=== PATIENT | female | born 1945 | race Caucasian/White ===

== ENCOUNTER 2018-06-02 23:11 | Inpatient (IN) | payer OTHER ==
[2018-06-02] MEDS ORDERED: LEVALBUTEROL 1.25 MG/3 ML NEB ONE (23:38)
[2018-06-02] MEDS ORDERED: METHYLPREDNISOLONE 125 MG INJ ONE (23:38)
[2018-06-03 00:13] LABS: Absolute Monocytes 0.9 K/uL (0.1-1.3); Absolute Neutrophil 8.2 K/uL (1.8-8.0); Basophils % 0.6 % (0-1.3); Eosinophils % 0.8 % (0-4.4); Hematocrit 42.7 % (36.0-45.0); Lymphocytes % 30.3 % (15.3-44.8); MCV 87.9 fL (80-100); MPV 7.5 fL (7.6-11.3); Monocytes % 6.7 % (3.3-12.3); RBC Red Blood Cell Count 4.86 M/uL (3.86-4.86)
[2018-06-03 00:33] LABS: Protime INR 0.88
[2018-06-03 00:40] LABS: BUN Blood Urea Nitrogen 11 mg/dL (7-18); Bicarbonate 28 mmol/L (21-32); Glucose Level 126 mg/dL (74-106); NT PRO-BNP 167 pg/mL (<125); Potassium 3.8 mmol/L (3.5-5.1); Sodium Level 142 mmol/L (136-145); Troponin (Emerg Dept Use Only) < 0.02 ng/mL (0.0-0.045)
--- NOTE | 2018-06-03 03:44 | EDPHYS ---
Physician Documentation [facility] Name: Leslie Coy Age: 72 yrs Sex: Female : 1945 Arrival Date: 06/02/2018 Time: 23:15 Bed 7 Private MD: ED Physician Alex Salcedo HPI: 06/03 01:09 This 72 yrs old Female presents to ER via EMS with complaints of sob, cough. rn 01:09 The patient has shortness of breath at rest. rn 01:10 Onset: The symptoms/episode began/occurred 3 day(s) ago. Duration: The symptoms are rn continuous. The patient's shortness of breath is aggravated by exertion, light activity, talking, walking. Associated signs and symptoms: Pertinent positives: productive cough, Pertinent negatives: fever, hemoptysis, loss of consciousness. Severity of symptoms: At their worst the symptoms were moderate in the emergency department the symptoms are unchanged. The patient has experienced similar episodes in the past. The patient has not recently seen a physician. Historical: - Allergies: 06/02 23:27 Codeine; ak1 23:27 Aspirin; ak1 - Home Meds: 23:27 Daliresp 500 mcg Oral tab 1 tab once daily [Active]; prednisone 10 mg Oral tab once ak1 daily [Active]; Zoloft Oral [Active]; - PMHx: 23:27 ADD/ADHD; BREAST CA; COPD; skin ca; ak1 - PSHx: 23:27 Mastectomy, Right; Hysterectomy; ak1 - Immunization history:: Adult Immunizations unknown. - Social history:: Smoking status: Patient uses tobacco products, smokes one-half pack cigarettes per day. - Ebola Screening: : No symptoms or risks identified at this time. - Family history:: not pertinent. - Hospitalizations: : No recent hospitalization is reported. ROS: 06/03 01:10 Constitutional: Negative for fever, chills, and weight loss, Eyes: Negative for injury, rn pain, redness, and discharge, Neck: Negative for injury, pain, and swelling, Cardiovascular: Negative for chest pain, palpitations, and edema, Respiratory: + sob and cough Abdomen/GI: Negative for abdominal pain, nausea, vomiting, diarrhea, and constipation, MS/Extremity: Negative for injury and deformity, Skin: Negative for injury, rash, and discoloration, Neuro: + generalized weakness Exam: 01:10 Constitutional: This is a well developed, well nourished patient who is awake, alert, rn mild respiratory distress Head/Face: Normocephalic, atraumatic. Cardiovascular: tachycardic, regular, no murmur Respiratory: + moderate tachypnea, no retractions, poor inspiratory air movement Abdomen/GI: soft, non-tender Skin: Warm, dry, no evidence of cellulitis. MS/ Extremity: Pulses equal, no cyanosis. Neurovascular intact. Full, normal range of motion. Equal circumference. Neuro: Awake and alert, GCS 15, oriented to person, place, time, and situation. Cranial nerves II-XII grossly intact. Motor strength 5/5 in all extremities. Sensory grossly intact. Vital Signs: 06/02 23:22 BP 145 / 82; Pulse 108; Resp 24; Temp 99.5(A); Pulse Ox 98% on Nebulizer Mask; Weight ak1 49.44 kg (R); Height 4 ft. 10 in. (147.32 cm) (R); Pain 10; 06/03 01:51 BP 125 / 74; Pulse 91; Resp 19; Pulse Ox 98% on 3 lpm NC; Pain 0/10; ak1 02:55 BP 114 / 62; Pulse 94; Resp 28; Temp 99; Pulse Ox 97% on 3 lpm NC; ak1 03:51 BP 126 / 69; Pulse 89; Resp 26; Temp 99; Pulse Ox 99% on 3 lpm NC; Pain 0/10; ak1 07:31 BP 129 / 80; Pulse 80; Resp 20; Temp 98.9; Pulse Ox 95% on 3 lpm NC; Pain 0/10; sg 06/02 23:22 Body Mass Index 22.78 (49.44 kg, 147.32 cm) ak1 MDM: 06/02 23:16 Patient medically screened. rn 06/03 01:13 ED course: + hx of dvt. rn 03:42 Differential diagnosis: Anemia Bronchitis Chronic Obstructive Pulmonary Disease rn Pneumothorax pulmonary edema, Pulmonary Embolism reactive airway disease, Sepsis. Data reviewed: vital signs, nurses notes, lab test result(s), EKG, radiologic studies, CT scan, plain films, and as a result, I will admit patient. Counseling: I had a detailed discussion with the patient and/or guardian regarding: the historical points, exam findings, and any diagnostic results supporting the discharge/admit diagnosis, lab results, radiology results, the need for further work-up and treatment in the hospital. Response to treatment: the patient's symptoms have mildly improved after treatment, and as a result, I will admit patient. 06/02 23:18 Order name: Blood Culture Adult (2) 06/02 23:18 Order name: BMP; Complete Time: 01:08 rn 06/02 23:18 Order name: CBC with Diff; Complete Time: 00:28 rn 06/02 23:18 Order name: D-Dimer; Complete Time: 00:40 rn 06/02 23:18 Order name: NT PRO-BNP; Complete Time: 01:08 06/02 23:18 Order name: PT-INR; Complete Time: 00:40 06/02 23:18 Order name: Ptt, Activated; Complete Time: 00:40 06/02 23:18 Order name: Troponin (emerg Dept Use Only); Complete Time: 01:08 06/02 23:18 Order name: Procalcitonin; Complete Time: 01:13 06/02 23:18 Order name: Flu; Complete Time: 01:08 06/03 04:09 Order name: ABG Arterial Blood Gas [facility] 06/03 05:19 Order name: Basic Metabolic Panel [facility] 06/03 05:19 Order name: Basic Metabolic Panel [facility] 06/03 05:19 Order name: CBC with Automated Diff [facility] 06/02 23:18 Order name: XRAY CXR (1 view) 06/02 23:18 Order name: EKG; Complete Time: 23:18 06/02 23:18 Order name: Cardiac monitoring; Complete Time: 23:48 rn 06/02 23:18 Order name: EKG - Nurse/Tech; Complete Time: 00:01 06/02 23:18 Order name: IV Saline Lock; Complete Time: 00:01 06/02 23:18 Order name: Labs collected and sent; Complete Time: 00:01 06/02 23:18 Order name: O2 Per Protocol; Complete Time: 23:30 rn 06/02 23:18 Order name: O2 Sat Monitoring; Complete Time: 23:30 rn 06/03 01:08 Order name: CT Chest For PE Angio rn 06/03 05:19 Order name: CONS Physician Consult [facility] 06/03 05:19 Order name: Heart Healthy [facility] 06/03 05:19 Order name: CBC with Automated Diff [facility] 06/03 05:19 Order name: Sputum Culture [facility] Administered Medications: 06/02 23:49 Drug: Xopenex (3) 1.25 mg Route: Inhalation; ak1 06/03 00:10 Drug: SOLU-Medrol 125 mg Route: IVP; Site: left forearm; ak1 01:50 Follow up: Response: No adverse reaction ak1 00:10 Drug: NS 0.9% 500 ml Route: IV; Rate: bolus; Site: left forearm; ak1 01:50 Follow up: IV Status: Completed infusion ak1 Disposition: 06/03/18 03:44 Hospitalization ordered by Viviana Harrington for Inpatient Admission. Preliminary diagnosis are Chronic obstructive pulmonary disease with (acute) exacerbation, Dyspnea, unspecified. - Bed requested for Telemetry/MedSurg (Inpatient). - Status is Inpatient Admission. sg - Condition is Stable. - Problem is new. - Symptoms have improved. UTI on Admission? No Signatures: Dispatcher [employer] [facility] Jayla Holcomb RN RN kl Gay, Steven, RN RN sg Nieto, Roman, MD MD rn Krenek, Amber, RN RN ak1 Corrections: (The following items were deleted from the chart) : 03:44 Hospitalization Ordered by Viviana Harrington MD for Inpatient Admission. Preliminary kl diagnosis is Chronic obstructive pulmonary disease with (acute) exacerbation; Dyspnea, unspecified. Bed requested for Telemetry/MedSurg (Inpatient). Status is Inpatient Admission. Condition is Stable. Problem is new. Symptoms have improved. UTI on Admission? No. rn 08:17 05:22 06/03/2018 03:44 Hospitalization Ordered by Viviana Harrington MD for Inpatient sg Admission. Preliminary diagnosis is Chronic obstructive pulmonary disease with (acute) exacerbation; Dyspnea, unspecified. Bed requested for Telemetry/MedSurg (Inpatient). Status is Inpatient Admission. Condition is Stable. Problem is new. Symptoms have improved. UTI on Admission? No. kl
--- NOTE | 2018-06-03 03:44 | ER ---
Nurse's Notes [facility] Name: Leslie Coy Age: 72 yrs Sex: Female : 1945 Arrival Date: 06/02/2018 Time: 23:15 Bed 7 Private MD: Diagnosis: Chronic obstructive pulmonary disease with (acute) exacerbation;Dyspnea, unspecified Presentation: 06/02 23:23 Presenting complaint: EMS states: pt with SOB, productive cough X3 days [employer]. pt stated ak1 chest pain and cough X1 week. pt PCP is [facility] in [place]. pt uses home oxygen. Transition of care: patient was not received from another setting of care. Onset of symptoms is unknown. Risk Assessment: Do you want to hurt yourself or someone else? Patient reports no desire to harm self or others. Initial Sepsis Screen: Does the patient meet any 2 criteria? No. Patient's initial sepsis screen is negative. Does the patient have a suspected source of infection? No. Patient's initial sepsis screen is negative. Care prior to arrival: A\T\A treatment in route. 23:23 Method Of Arrival: EMS: [facility] ak1 23:23 Acuity: MINOO 3 ak1 Triage Assessment: 23:27 General: Appears in no apparent distress. Behavior is calm, cooperative. Pain: ak1 Complains of pain in chest. Historical: - Allergies: 23:27 Codeine; ak1 23:27 Aspirin; ak1 - Home Meds: 23:27 Daliresp 500 mcg Oral tab 1 tab once daily [Active]; prednisone 10 mg Oral tab once ak1 daily [Active]; Zoloft Oral [Active]; - PMHx: 23:27 ADD/ADHD; BREAST CA; COPD; skin ca; ak1 - PSHx: 23:27 Mastectomy, Right; Hysterectomy; ak1 - Immunization history:: Adult Immunizations unknown. - Social history:: Smoking status: Patient uses tobacco products, smokes one-half pack cigarettes per day. - Ebola Screening: : No symptoms or risks identified at this time. - Family history:: not pertinent. - Hospitalizations: : No recent hospitalization is reported. Screenin:29 Abuse screen: Denies threats or abuse. Denies injuries from another. Nutritional ak1 screening: No deficits noted. Tuberculosis screening: No symptoms or risk factors identified. Fall Risk None identified. Assessment: 23:30 Reassessment: Patient appears in no apparent distress at this time. No changes from ak1 previously documented assessment. see triage assessment. 06/03 01:35 Reassessment: after multiple re-adjustments to the bipap mask, pt took mask off and ak1 refuses to wear the mask. pt placed on 3L NC which she uses at home. pt assisted to bedside commode. 04:44 Reassessment: Patient appears in no apparent distress at this time. No changes from ak1 previously documented assessment. Patient and/or family updated on plan of care and expected duration. Pain level reassessed. Patient is alert, oriented x 3, equal unlabored respirations, skin warm/dry/pink. pt informed of stay in ER until after shift change. Patient states symptoms have improved. 06:50 Reassessment: Dr. Cazares contacted about medication change from pharmacy. after hour ak1 pharmacy told to contact Dr. Cazares about changes. 07:50 Reassessment: Patient appears in no apparent distress at this time. attempt to call sg report, nurse unavailable at this time, instructed to please call back later, pt updated on delay for admission, pt stated understanding. Vital Signs: 06/02 23:22 BP 145 / 82; Pulse 108; Resp 24; Temp 99.5(A); Pulse Ox 98% on Nebulizer Mask; Weight ak1 49.44 kg (R); Height 4 ft. 10 in. (147.32 cm) (R); Pain 10/10; 06/03 01:51 BP 125 / 74; Pulse 91; Resp 19; Pulse Ox 98% on 3 lpm NC; Pain 0/10; ak1 02:55 BP 114 / 62; Pulse 94; Resp 28; Temp 99; Pulse Ox 97% on 3 lpm NC; ak1 03:51 BP 126 / 69; Pulse 89; Resp 26; Temp 99; Pulse Ox 99% on 3 lpm NC; Pain 0/10; ak1 07:31 BP 129 / 80; Pulse 80; Resp 20; Temp 98.9; Pulse Ox 95% on 3 lpm NC; Pain 0/10; sg 06/02 23:22 Body Mass Index 22.78 (49.44 kg, 147.32 cm) ak ED Course: 06/02 23:15 Patient arrived in ED. ak1 23:16 Alex Salcedo MD is Attending Physician. rn 23:22 Shala Addison, RN is Primary Nurse. ak1 23:25 Triage completed. ak1 23:27 Arm band placed on Patient placed in an exam room, on a stretcher, on oxygen, on ak1 monitoring engineer, on pulse oximetry, Patient notified of wait time. 23:29 Patient has correct armband on for positive identification. Bed in low position. Call ak1 light in reach. Side rails up X 1. Side rails up X2. threat monitoring analyst on. Pulse ox on. NIBP on. 23:45 EKG done, by ED staff, reviewed by Alex Salcedo MD. cc 23:55 Initial lab(s) drawn, by me, sent to lab. First set of blood cultures drawn by me. cc Inserted saline lock: 22 gauge in left forearm, using aseptic technique. Blood collected. 23:57 Flu and/or RSV swab sent to lab. cc 06/03 00:34 Notified ED physician of a critical lab result(s). DDimer of [id number] Dr Salcedo notified. bb 01:26 XRAY CXR (1 view) In Process Unspecified. EDMS 03:[address] via stretcher. kw1 03:27 CT Chest For PE Angio In Process Unspecified. EDMS 03:31 CT completed. Patient tolerated procedure well. Patient moved back from CT. kw1 03:43 Viviana Harrington MD is Hospitalizing Provider. rn 03:50 No provider procedures requiring assistance completed. Patient admitted, IV remains in ak1 place. Administered Medications: 06/02 23:49 Drug: Xopenex (3) 1.25 mg Route: Inhalation; ak1 06/03 00:10 Drug: SOLU-Medrol 125 mg Route: IVP; Site: left forearm; ak1 01:50 Follow up: Response: No adverse reaction ak1 00:10 Drug: NS 0.9% 500 ml Route: IV; Rate: bolus; Site: left forearm; ak1 01:50 Follow up: IV Status: Completed infusion ak1 Outcome: 03:44 Decision to Hospitalize by Provider. rn 04:45 Admitted to ER Hold. Please see [facility] for further documentation. ak1 04:45 Condition: stable 04:45 Instructed on the need for admit. 08:04 Admitted to Med/surg accompanied by tech, via stretcher, room 205, with oxygen, with nadege chart, Report called to Bijan DELA CRUZ 08:04 Condition: stable 08:04 Instructed on the need for admit, safety practices. 08:17 Patient left the ED. nadege Signatures: Dispatcher [employer] EDClaudio Lara, RN Mandy Tolbert RN RN Alex Fraser MD MD rn Christian, Chelsea cc Krenek, Amber, RN RN ak1 Jayla Gomes
--- NOTE | 2018-06-03 04:19 | P.HP ---
Certification for Inpatient Patient admitted to: Inpatient With expected LOS: >2 Midnights Practitioner: I am a practitioner with admitting privileges, knowledge of patient current condition, hospital course, and medical plan of care. Services: Services provided to patient in accordance with Admission requirements found in Title 42 Section 412.3 of the Code of Federal Regulations Patient History Date of Service: 06/03/18 Reason for admission: COPD exacerbation History of Present Illness: Ms Coy is a 72-year-old woman with history of breast cancer and, COPD on home oxygen, who came to ER complaining of progressive shortness of breath associated with productive cough starting about 2 days ago. She states that her sputum change from clear to greenish. She denied any fever or chills. She denied also chest pain. Lab work remarkable for leukocytosis 13.2 K, elevated D-dimer and normal procalcitonin. CTA of the chest was negative for PE. There is no acute infiltrate reported. In ER the patient had low-grade fever and 99.5 F, O2 sat 98% on 3 L by NC. Allergies codeine [Codeine] Allergy (Verified 06/09/12 12:24) Itching/Hives/Rash Home medications list reviewed: Yes Home Medications: Albuterol Neb [Proventil 0.083% Neb Soln] 2.5 mg IH PRN PRN 06/09/12 Albuterol Sulfate [Ventolin Hfa] 2 puff IH QIDP PRN 06/09/12 Cholecalciferol (Vitamin D3) [Vitamin D 2,000 Unit Tab] 2,000 unit PO DAILY 09/08 Citalopram Hydrobromide [Celexa] 40 mg PO DAILY 06/09/12 Loratadine [Claritin] 10 mg PO DAILY 06/09/12 Nicotine [Nicotine Patch] 1 each TD DAILY 06/09/12 Arformoterol Tartrate [Brovana] 15 mcg IH BID #20 ml 06/10/12 Prednisone 10 mg PO BID #20 tablet 06/10/12 Hydrocodone/Chlorphen Polis [Tussionex Oral Susp] 5 ml PO Q12HR PRN #100 ml Pantoprazole [Protonix Tab] 40 mg PO DAILY #30 tab 04/27/16 Tiotropium [place] [Spiriva] 1 spray IH DAILY 04/27/16 - Past Medical/Surgical History Diabetic: No -: COPD -: Tobacco abuse -: Breast cancer -: Mastectomy -: Hysterectomy - Family History Family History: Reviewed- Non-Contributory - Social History Smoking Status: Current every day smoker Counseled patient to stop smoking for: less than 10 minutes Alcohol use: No CD- Drugs: No Caffeine use: Yes Place of Residence: Home Review of Systems 10-point ROS is otherwise unremarkable Physical Examination - Physical Exam General: Alert, In no apparent distress HEENT: Atraumatic, PERRLA, Mucous membr. moist/pink, EOMI, Sclerae nonicteric Neck: Supple, 2+ carotid pulse no bruit, No LAD, Without JVD or thyroid abnormality Respiratory: Diminished, Crackles/rales (Bibasilar crackles) Cardiovascular: Regular rate/rhythm, Normal S1 S2 Gastrointestinal: Normal bowel sounds, No tenderness Musculoskeletal: No tenderness Integumentary: No rashes Neurological: Normal speech, Normal strength at 5/5 x4 extr, Normal tone, Normal affect Lymphatics: No axilla or inguinal lymphadenopathy - Studies Laboratory Data (last 24 hrs) 06/02/18 23:55: PT 10.4, INR 0.88, APTT 26.6 06/02/18 23:55: WBC 13.2 H, Hgb 14.6, Hct 42.7, Plt Count 274 06/02/18 23:55: Sodium 142, Potassium 3.8, BUN 11, Creatinine 1.10, Glucose 126 H Microbiology Data (last 24 hrs): 06/02/18 23:57 Nasopharnyx Influenza Type A Antigen Screen - Final 06/02/18 23:57 Nasopharnyx Influenza Type B Antigen Screen - Final Assessment and Plan - Problems (Diagnosis) (1) COPD exacerbation Current Visit: Yes Status: Acute (2) History of breast cancer Current Visit: Yes Status: Acute - Plan Will admit the patient to the hospital due to COPD exacerbation. There is no acute infiltrate on CT scan of the chest, however the patient clinical presentation consistent with possible early stage pneumonia vs acute bronchitis. Will start empiric IV antibiotic, IV steroids and breathing treatments. Consult complaint investigator for evaluation recommendation. Continue oxygen support. - Advance Directives Does patient have a Living Will: Yes Does patient have a Durable POA for Healthcare: No - Code Status/Comfort Care Code Status Assessed: Yes Code Status: Full Code
[2018-06-03 04:26] LABS: Arterial Blood Carboxyhemoglob 0.8 % (0-1.5); Blood O2 Saturation 98.2 % (92-98.5)
[2018-06-03] MEDS ORDERED: IPRATROPIUM BROM 0.5MG/2.5ML NEB PRN (05:17)
[2018-06-03] MEDS ORDERED: ONDANSETRON 4 MG/2 ML VIAL IV PRN (05:17)
[2018-06-03] MEDS ORDERED: ACETAMINOPHEN 500 MG TAB PO PRN (05:17)
[2018-06-03] MEDS ORDERED: ALBUTEROL 2.5 MG/3 ML NEB SOL NEB PRN (05:17)
[2018-06-03] MEDS ORDERED: NA CHLORIDE 0.9% 1,000 ML IV SCH (05:17)
[2018-06-03] MEDS ORDERED: AZITHROMYCIN IV 500 MG in NA CHLORIDE 0.9% 250 ML IVPB SCH (07:00)
[2018-06-03] MEDS ORDERED: CEFTRIAXONE 1 GM/NS 50 ML 1 GM/50 ML BAG IV SCH (07:00)
--- NOTE | 2018-06-03 08:02 | RAD REPORT ---
EXAM DESCRIPTION: RAD - Chest Single View - 06/03/2018 1:26 am CLINICAL HISTORY: Productive cough, shortness of breath COMPARISON: May 22 TECHNIQUE: AP portable chest image was obtained 2357 hours . FINDINGS: Fibrotic and obstructive lung changes are present in a pattern similar to the comparison. An acute infiltrate or mass are not identified. No failure or volume overload findings seen. Heart an d vasculature are normal. No measurable pleural effusion and no pneumothorax. No acute bony abnormali ty seen. No acute aortic findings suspected. IMPRESSION: Prominent COPD pattern not substantially different from comparison.
--- NOTE | 2018-06-03 08:44 | RAD REPORT ---
EXAM DESCRIPTION: CT - Chest For Pe Angio - 06/03/2018 7:28 am CLINICAL HISTORY: Shortness of breath, chest pain A preliminary report was provided at the time of the study and reviewed prior to final report. COMPARISON: Portable chest same date TECHNIQUE: Dynamically enhanced 3 mm thick images of the chest were obtained during administration o f approximately 150mL Isovue 370 IV contrast. Coronal and oblique MIP reconstruction images were gene rated and reviewed. Exam utilizes a protocol to evaluate the pulmonary arterial tree. All CT scans are performed using dose optimization technique as appropriate and may include automated exposure control or mA/KV adjustment according to patient size. FINDINGS: No pulmonary emboli are identified. The aorta as imaged shows no acute or suspicious finding. No pericardial thickening or effusion. Patient has underlying emphysema change. No suspicious infiltrate or mass. Calcified granuloma noted lateral lower left lung field. There is a small focus of pleural and parenchymal scarring in the post erior right apex. No pleural effusion or pleural thickening. Patient has a small Bochdalek's hernia c ontaining only fat. No mediastinal or hilar suspicious masses. No chest wall masses or abnormal axillary lymphadenopathy. Patient has a right breast implant that is partially collapsed. Implant capsule is partially calcifi ed. IMPRESSION: No pulmonary emboli identified. No other significant or suspicious findings.Nonacute findings detailed in the body of the report.
[2018-06-03] MEDS ORDERED: ENOXAPARIN 30 MG/0.3 ML SQ SCH (09:00)
[2018-06-03] MEDS ORDERED: ENOXAPARIN 40 MG/0.4 ML SQ SCH (09:00)
--- NOTE | 2018-06-03 09:01 | EKG ---
Test Date: 2018-06-02 Test Time: 23:46:04 [employer]ining [employer] Sewer: LEYDI MEASUREMENT RESULTS: Intervals: Rate: 93 [place]: 118 QRSD: 74 QT: 342 QTc: 425 [place]: P: 82 [place]: 118 QRS: 12 T: 77 INTERPRETIVE STATEMENTS: Normal sinus rhythm Biatrial enlargement Abnormal ECG Compared to ECG 05/22/2016 19:39:38 No significant changes Electronically Signed On 06-03-18 09:01:12 CDT by Salvador Omer
[2018-06-03] MEDS: HEPARIN 5000 UNIT/ML 1 ML VIAL SQ SCH ×2 (09:12→21:23)
[2018-06-03] MEDS: METHYLPREDNISOLONE 40 MG INJ IV SCH ×2 (09:13→16:23)
[2018-06-03] MEDS: CEFTRIAXONE/SWI 1gm 1 GM/10 ML SYR IV SCH (09:13)
[2018-06-03] MEDS ORDERED: INFLUENZA VACCINE (for 3y+) 0.5 ML DOSE IMVAC ONE (10:00)
[2018-06-03] MEDS ORDERED: PNEUMOCOCCAL VACCINE 0.5 ML IMVAC ONE (10:00)
[2018-06-03] MEDS: ARFORMOTEROL TARTRATE 15 MCG/2 ML VIAL.NEB NEB SCH ×2 (12:40→20:04)
--- NOTE | 2018-06-03 12:42 | P.CNS ---
Date of Consult: 06/03/18 Reason for Consult: COPD exacerbation Chief Complaint: COPD exacerbation History of Present Illness: Patient is 72 years of age was discharged from hospice care about 6-8 months ago where she was admitted with C. difficile for the past 2 weeks she has been complaining of worsening shortness of breath cough congestion increase the prednisone to 20 mg once a day patient does not have a machine crater or primary care doctor is compliant with it inhalers which includes Stiolto an dproair. Apparently she recovered and went back to living by herself complaining of shortness of breath on mild thick Allergies aspirin Allergy (Verified 06/03/18 05:16) Rash codeine [Codeine] Allergy (Verified 06/09/12 12:24) Itching/Hives/Rash Home Medications: Citalopram Hydrobromide [Celexa] 40 mg PO DAILY 06/09/12 Tiotropium [place] [Spiriva] 1 spray IH DAILY 04/27/16 Albuterol Neb [Proventil 0.083% Neb Soln] 2.5 mg IH Q8H PRN 06/03/18 Albuterol Sulfate [Proair Hfa] 8.5 gm IH Q4H PRN 06/03/18 Prednisone 20 mg PO DAILY 06/03/18 Sertraline [Zoloft] 50 mg PO DAILY 06/03/18 - Past Medical/Surgical History Diabetic: No -: COPD -: Tobacco abuse -: Breast cancer -: Mastectomy -: Hysterectomy - Social History Smoking Status: Current every day smoker Alcohol use: No CD- Drugs: No Caffeine use: No Place of Residence: Home Review of Systems 10-point ROS is otherwise unremarkable General: Weakness Respiratory: Cough, Shortness of Breath Physical Examination Temp Pulse Resp BP Pulse Ox 97.2 F 93 H 24 H 138/66 97 06/03/18 08:00 06/03/18 08:00 06/03/18 08:00 06/03/18 08:00 06/03/18 08:00 General: Alert, Oriented x3, Cooperative HEENT: Atraumatic Neck: Supple Respiratory: Expiratory wheezes Cardiovascular: No edema, Normal S1 S2 Gastrointestinal: Normal bowel sounds, Soft and benign Laboratory Data (last 24 hrs) 06/02/18 23:55: PT 10.4, INR 0.88, APTT 26.6 06/02/18 23:55: WBC 13.2 H, Hgb 14.6, Hct 42.7, Plt Count 274 06/02/18 23:55: Sodium 142, Potassium 3.8, BUN 11, Creatinine 1.10, Glucose 126 H - Problems (1) COPD exacerbation Current Visit: Yes Status: Acute Plan: Patient is 72 years of age admitted with COPD exacerbation she is compliant with it inhalers no evidence of pulmonary emboli her pneumonia patient is on prednisone 20 mg a day at home Dc IV fluids had brought Milind Raza scheduled continue with IV steroids so far cultures are negative sputum Gram stain culture are pending possible discharge tomorrow
[2018-06-03] MEDS: IPRATROPIUM BROM 0.5MG/2.5ML NEB SCH ×2 (14:00→20:04)
--- NOTE | 2018-06-03 21:43 | PN ---
Date of Progress Note: 06/03/2018 Subjective: The patient is seen and examined. Chart reviewed and case discussed with RN and Dr. nAoop romero. The patient is complaining of some shortness of breath. States she overall feels better. Kyrie crespo was recently on hospice, however, was taken off. The patient does have chronic COPD and is oxygen dependent. Review of Systems: Negative except as above. Code Status: Full. Medications: List reviewed. Physical Examination: Vital Signs: Temperature 97.4, heart rate 92, blood pressure 115/60, respirations 24, and O2 98% on 3 L via nasal cannula. General: Awake, alert, oriented x3. Some mild respiratory distress. Elderly female. Somewhat ill- appearing. CV: S1, S2. No murmurs. Regular rate and rhythm. Peripheral pulses present. Respiratory: Diminished breath sounds. Diffuse wheezing. No crackles. The patient is not using an y accessory muscles. No stridor. Gastrointestinal: Abdomen is soft, nontender, nondistended. Positive bowel sounds. No guarding or rigidity. Extremities: No clubbing, cyanosis, or edema. Neurologic: Nonfocal. Laboratory Data: Pending. Imaging Studies: CT angio chest shows no PE. Lungs have emphysematous changes. No mass or infiltra te. Calcified granuloma in the lateral left lower lung field. Scarring in the posterior right apex. No pleural effusion. Chest x-ray shows COPD pattern not substantially different from previous. Assessment And Plan: 1.A 72-year-old female with acute chronic obstructive pulmonary disease exacerbation. We will jessica nue with IV steroids and nebulizer treatments. Dr. Moctezuma has been consulted. Influenza screen wa s negative. Cultures are pending at this time. We will follow up with repeat CBC. Chest x-ray and CT angio did not show any PE. No acute infiltrates. 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 2.Chronic respiratory failure, on home oxygen. 3.History of breast cancer. 4.Nicotine dependence, cigarette smoking, continuous, uncomplicated. 5.Seasonal allergies, on Claritin. 6.Gastrointestinal and deep venous thrombosis prophylaxis addressed. SA/MODL Voice ID: [id number] Report ID: [id number]
[2018-06-03] MEDS: guaiFENesin 100 MG/5 ML UCUP PO PRN (22:23)
[2018-06-04] MEDS: METHYLPREDNISOLONE 40 MG INJ IV SCH ×3 (00:06→17:08)
[2018-06-04] MEDS: IPRATROPIUM BROM 0.5MG/2.5ML NEB SCH ×4 (01:07→19:28)
[2018-06-04 05:42] VITALS: BMI 22.6
[2018-06-04 06:10] LABS: Absolute Lymphocytes (CBC) 0.7 K/uL (0.7-4.9); Absolute Monocytes 0.4 K/uL (0.1-1.3); Absolute Neutrophil 17.1 K/uL (1.8-8.0); Basophils % 0.6 % (0-1.3); Hematocrit 41.5 % (36.0-45.0); Lymphocytes % 3.8 % (15.3-44.8); MCH 29.9 pg (27.0-35.0); MPV 8.5 fL (7.6-11.3); Monocytes % 2.2 % (3.3-12.3); RBC Red Blood Cell Count 4.66 M/uL (3.86-4.86)
[2018-06-04 06:21] LABS: Potassium 4.2 mmol/L (3.5-5.1)
[2018-06-04] MEDS: ARFORMOTEROL TARTRATE 15 MCG/2 ML VIAL.NEB NEB SCH ×2 (07:25→19:28)
[2018-06-04 08:19] LABS: Blood Morphology Comment NOT SEEN (NOT SEEN); Platelet Estimate ADEQ; Urine White Blood Cell Casts OK
[2018-06-04] MEDS: guaiFENesin 100 MG/5 ML UCUP PO PRN ×2 (10:32→19:25)
[2018-06-04] MEDS: HEPARIN 5000 UNIT/ML 1 ML VIAL SQ SCH ×2 (10:36→21:23)
[2018-06-04] MEDS: CEFTRIAXONE/SWI 1gm 1 GM/10 ML SYR IV SCH (10:36)
[2018-06-04] MEDS: CITALOPRAM 10 MG TABLET PO SCH (10:37)
[2018-06-04] MEDS: SERTRALINE HCL 50 MG TAB PO SCH (10:37)
--- NOTE | 2018-06-04 14:00 | P.PN ---
Subjective Date of Service: 06/04/18 Chief Complaint: COPD exacerbation Patient seen and examined at bedside. No family at bedside. Case discussed with nursing staff and Dr. Fisher. She is currently complaining of cough and bringing up sputum. She is also complaining of pain on the right side of her chest, which is not new for her. She reports improved wheezing from initial admission. She is currently on 3 L oxygen, which is her baseline at home. Review of Systems 10-point ROS is otherwise unremarkable Physical Examination - Vital Signs Temperature: 97.0 F Blood Pressure: 137/65 Pulse: 97 Respirations: 18 Pulse Ox (%): 98 - Physical Exam General: Alert, In no apparent distress HEENT: Atraumatic, PERRLA, EOMI Neck: Supple, JVD not distended Respiratory: Diminished, Crackles/rales (Bilateral lower) Cardiovascular: Normal S1 S2, Irregular heart rate/rhythm (Tachycardic) Gastrointestinal: Normal bowel sounds, No tenderness Musculoskeletal: No tenderness Integumentary: No rashes Neurological: Normal speech, Normal tone, Normal affect Lymphatics: No axilla or inguinal lymphadenopathy - Studies Medications List Reviewed: Yes Assessment And Plan - Current Problems (Diagnosis) (1) COPD exacerbation Onset Date: 06/04/18 Current Visit: Yes Status: Acute Plan: no acute infiltrate on CT scan of the chest, however the patient clinical presentation consistent with possible early stage pneumonia vs acute bronchitis. Continue empiric IV antibiotic, IV steroids and breathing treatments. Continue oxygen via nasal cannula as needed. Pulmonology consulted. Recs appreciated. (2) History of breast cancer Current Visit: Yes Status: Acute Discharge Plan: Home Plan to discharge in: 48 Hours (Pending symptomatic improvement.)
[2018-06-05] MEDS: METHYLPREDNISOLONE 40 MG INJ IV SCH ×3 (00:06→16:31)
[2018-06-05] MEDS: IPRATROPIUM BROM 0.5MG/2.5ML NEB SCH ×4 (02:10→19:19)
[2018-06-05] MEDS: guaiFENesin 100 MG/5 ML UCUP PO PRN ×3 (06:47→22:06)
[2018-06-05 07:20] LABS: Albumin 2.9 g/dL (3.4-5.0); Bilirubin Total 0.2 mg/dL (0.2-1.0); Potassium 4.6 mmol/L (3.5-5.1); Protein, Total 6.2 g/dL (6.4-8.2)
[2018-06-05 07:42] LABS: Absolute Lymphocytes (CBC) 0.7 K/uL (0.7-4.9); Absolute Monocytes 0.3 K/uL (0.1-1.3); Absolute Neutrophil 15.6 K/uL (1.8-8.0); Basophils % 0.1 % (0-1.3); Hematocrit 41.2 % (36.0-45.0); MCH 29.5 pg (27.0-35.0); MCV 88.5 fL (80-100); MPV 8.3 fL (7.6-11.3); Monocytes % 1.9 % (3.3-12.3); RBC Red Blood Cell Count 4.65 M/uL (3.86-4.86)
[2018-06-05] MEDS: ARFORMOTEROL TARTRATE 15 MCG/2 ML VIAL.NEB NEB SCH ×2 (08:10→19:19)
[2018-06-05] MEDS: CITALOPRAM 10 MG TABLET PO SCH (08:53)
[2018-06-05] MEDS: HEPARIN 5000 UNIT/ML 1 ML VIAL SQ SCH ×2 (08:53→21:42)
[2018-06-05] MEDS: CEFTRIAXONE/SWI 1gm 1 GM/10 ML SYR IV SCH (08:53)
[2018-06-05] MEDS: SERTRALINE HCL 50 MG TAB PO SCH (08:53)
[2018-06-05] MEDS ORDERED: BENZONATATE 100 MG CAP PO PRN (11:57)
--- NOTE | 2018-06-05 13:03 | P.PN ---
Subjective Date of Service: 06/05/18 Chief Complaint: COPD exacerbation Patient seen and examined at bedside. No family at bedside. Case discussed with nursing staff. Patient reports improved breathing, and decreased cough. She is also reported decreased sputum production, and now it is clear. She reports improved wheezing from initial admission. She is currently on 3 L oxygen, which is her baseline at home. Review of Systems As noted above Physical Examination - Vital Signs Temperature: 97.7 F Blood Pressure: 121/58 Pulse: 97 Respirations: 17 Pulse Ox (%): 97 - Physical Exam General: Alert, In no apparent distress HEENT: Atraumatic, PERRLA, EOMI Neck: Supple, JVD not distended Respiratory: Diminished, Expiratory wheezes, Inspiratory wheezes Cardiovascular: Regular rate/rhythm, Normal S1 S2 Gastrointestinal: Normal bowel sounds, No tenderness Musculoskeletal: No tenderness Integumentary: No rashes Neurological: Normal speech, Normal tone, Normal affect Lymphatics: No axilla or inguinal lymphadenopathy - Studies Medications List Reviewed: Yes Assessment And Plan - Current Problems (Diagnosis) (1) COPD exacerbation Onset Date: 06/04/18 Current Visit: Yes Status: Acute Plan: no acute infiltrate on CT scan of the chest, will discontinue antibiotics. Continue IV steroids and breathing treatments. Continue oxygen via nasal cannula as needed. Alessandro Tomlin for cough Pulmonology consulted. Recs appreciated. Patient has decided to go back on hospice upon discharge. Hospice evaluation and hospice at discharge orders placed. (2) History of breast cancer Current Visit: Yes Status: Acute
[2018-06-06] MEDS: METHYLPREDNISOLONE 40 MG INJ IV SCH ×2 (01:02→09:29)
[2018-06-06] MEDS: IPRATROPIUM BROM 0.5MG/2.5ML NEB SCH ×3 (02:02→13:50)
[2018-06-06] MEDS: ARFORMOTEROL TARTRATE 15 MCG/2 ML VIAL.NEB NEB SCH (07:35)
[2018-06-06 07:43] LABS: Absolute Lymphocytes (CBC) 0.7 K/uL (0.7-4.9); Absolute Monocytes 0.3 K/uL (0.1-1.3); Absolute Neutrophil 12.3 K/uL (1.8-8.0); Basophils % 0.3 % (0-1.3); Hematocrit 41.8 % (36.0-45.0); MCV 88.8 fL (80-100); MPV 8.1 fL (7.6-11.3); Monocytes % 2.3 % (3.3-12.3)
[2018-06-06 08:09] LABS: Albumin 2.7 g/dL (3.4-5.0); Bilirubin Total 0.2 mg/dL (0.2-1.0); Potassium 4.5 mmol/L (3.5-5.1)
[2018-06-06 08:35] VITALS: O2SAT 96
[2018-06-06] MEDS: SERTRALINE HCL 50 MG TAB PO SCH (09:00)
[2018-06-06] MEDS: CITALOPRAM 10 MG TABLET PO SCH (09:29)
[2018-06-06] MEDS: HEPARIN 5000 UNIT/ML 1 ML VIAL SQ SCH (09:29)
[2018-06-06] MEDS: guaiFENesin 100 MG/5 ML UCUP PO PRN (10:14)
[2018-06-06 11:05] VITALS: BP 121/66; TEMP 97.5
--- NOTE | 2018-06-06 12:43 | P.PN ---
Subjective Date of Service: 06/06/18 Chief Complaint: COPD exacerbation Subjective: Improving (Patient is doing much better wants to go home) Review of Systems Unremarkable Physical Examination - Vital Signs Temperature: 97.5 F Blood Pressure: 121/66 Pulse: 88 Respirations: 20 Pulse Ox (%): 95 - Physical Exam General: Alert, Oriented x3 Respiratory: Clear to auscultation bilaterally, Diminished Cardiovascular: No edema, Regular rate/rhythm - Studies Medications List Reviewed: Yes Assessment & Plan - Problems (Diagnosis) (1) COPD exacerbation Onset Date: 06/04/18 Current Visit: Yes Status: Acute Plan: Patient is 72 years of age admitted with COPD exacerbation can be discharged home patient wants to continue with the Stiolto. He also can go home on some low-dose prednisone patient does not qualify for home O2 although she does have home O2 cultures all negative no evidence of pneumonia or pulmonary emboli to follow up with me in 2 weeks
--- NOTE | 2018-06-06 14:10 | P.DS ---
Admission Date: 06/03/18 Discharge Date: 06/06/18 Disposition: HOSPICE-HOME Discharge Condition: GOOD Reason for Admission: COPD exacerbation Consultations: Dr. Moctezuma, Pulmonary - Problems (1) COPD exacerbation Onset Date: 06/04/18 Current Visit: Yes Status: Acute (2) History of breast cancer Current Visit: Yes Status: Acute Hospital Course: Patient was admitted for COPD exacerbation, and possible acute bronchitis vs early stage pna. She was started on IV antibiotics, steroids and breathing treatements. Clinical Trial Associate was consulted and she was given oxygen via nasal canula as needed. For her cough, she was given tessalon perles. Patient decided during this stay that she would like to go back on hospice. [facility] was contacted and had a meeting with the patient. Pateint will be discharged home with hospice. Vital Signs/Physical Exam: Temp Pulse Resp BP Pulse Ox 97.5 F 88 20 121/66 95 06/06/18 12:43 06/06/18 12:43 06/06/18 12:43 06/06/18 12:43 06/06/18 12:43 General: Alert, In no apparent distress HEENT: Atraumatic, PERRLA, EOMI Neck: Supple, JVD not distended Respiratory: Diminished, Expiratory wheezes, Inspiratory wheezes Cardiovascular: Regular rate/rhythm, Normal S1 S2 Gastrointestinal: Normal bowel sounds, No tenderness Musculoskeletal: No tenderness Integumentary: No rashes Neurological: Normal speech, Normal tone, Normal affect Lymphatics: No axilla or inguinal lymphadenopathy Laboratory Data at Discharge: WBC 13.3 K/uL (4.3-10.9) H D 06/06/18 07:01 Hgb 13.6 g/dL (12.0-15.0) 06/06/18 07:01 Hct 41.8 % (36.0-45.0) 06/06/18 07:01 Plt Count 268 K/uL (152-406) 06/06/18 07:01 PT 10.4 SECONDS (9.5-12.5) 06/02/18 23:55 INR 0.88 06/02/18 23:55 APTT 26.6 SECONDS (24.3-36.9) 06/02/18 23:55 Sodium 141 mmol/L (136-145) 06/06/18 07:01 Potassium 4.5 mmol/L (3.5-5.1) 06/06/18 07:01 BUN 21 mg/dL (7-18) H 06/06/18 07:01 Creatinine 0.90 mg/dL (0.55-1.3) 06/06/18 07:01 Glucose 116 mg/dL (74-106) H 06/06/18 07:01 Magnesium 2.3 mg/dL (1.8-2.4) 06/05/18 05:33 Total Bilirubin 0.2 mg/dL (0.2-1.0) 06/06/18 07:01 AST 12 U/L (15-37) L 06/06/18 07:01 ALT 21 U/L (12-78) 06/06/18 07:01 Alkaline Phosphatase 65 U/L (45-117) 06/06/18 07:01 Home Medications: Citalopram Hydrobromide [Celexa] 40 mg PO DAILY 06/09/12 Albuterol Neb [Proventil 0.083% Neb Soln] 2.5 mg IH Q8H PRN 06/03/18 Albuterol Sulfate [Proair Hfa] 8.5 gm IH Q4H PRN 06/03/18 Sertraline [Zoloft*] 50 mg PO DAILY 06/03/18 Tiotropium Br/Olodaterol HCl [Stiolto Respimat Inhal Peterman] 4 gm IH DAILY 30 Days mist.inhal 06/06/18 predniSONE [Deltasone*] 10 mg PO BID #20 tab 06/06/18 New Medications: predniSONE [Deltasone*] 10 mg PO BID #20 tab Tiotropium Br/Olodaterol HCl [Stiolto Respimat Inhal Peterman] 4 gm IH DAILY 30 Days mist.inhal Patient Discharge Instructions: Please follow up with your primary care physician in 1 week for hospital dischage follow up Diet: Regular Activity: Ad kathy Followup: Chaz Moctezuma MD [ACTIVE - CAN ADMIT] - Time spent managing pt's care (in minutes): 55
[2018-06-06] MEDS ORDERED: predniSONE 10 MG TAB PO SCH (21:00)
== END 2018-06-06 15:05 | disposition hospice, home (50) | DRG 191 ==
LOC: ER 23:11 → ERHOLD 06-03 03:44 → 2ND 06-03 07:32
PROVIDERS: ADMIT Internal Medicine; ATTEND Family Medicine
DX: J44.1 Chronic obstructive pulmonary disease with (acute) exacerbation (principal); J96.10 Chronic respiratory failure, unspecified whether with hypoxia or hypercapnia; J20.9 Acute bronchitis, unspecified; J44.0 Chronic obstructive pulmonary disease with (acute) lower respiratory infection; Z85.3 Personal history of malignant neoplasm of breast; Z99.81 Dependence on supplemental oxygen; Z88.5 Allergy status to narcotic agent; F17.210 Nicotine dependence, cigarettes, uncomplicated
CPT/HCPCS: 36415; 71045; 71275; 80048; 80053; 82805; 83605; 83735; 83880; 84145; 84484; 85025; 85379; 85610; 85730; 87040; 87205; 87804; 90670; 93005; 94640; 94660; 94760; 96361; 96374; 97163; 99285; G0008; G0009; J0456; J0696; J1644; J2920; J2930; J7030; J7605; Q2035; Q9967